=== PATIENT | female | born 1975 | race Caucasian/White ===

== ENCOUNTER 2021-11-16 02:42 | Emergency (ER) | payer SELFPAY ==
[~2021-11-16] VITALS: Ht 162.6 cm; Wt 77.1 kg
[2021-11-16] MEDS ORDERED: ACETAMINOPHEN 325 MG TAB PO PRN (03:00)
[2021-11-16 03:43] VITALS: BP 129/73
== END 2021-11-16 03:56 | disposition home or self-care (01) ==
LOC: ER 02:48
DX: S93.401A Sprain of unspecified ligament of right ankle, initial encounter (principal); M25.532 Pain in left wrist; M25.531 Pain in right wrist; W01.0XXA Fall on same level from slipping, tripping and stumbling without subsequent striking against object, initial encounter; Y93.01 Activity, walking, marching and hiking; Y92.89 Other specified places as the place of occurrence of the external cause
CPT/HCPCS: 99284

== ENCOUNTER 2022-01-02 03:38 | Inpatient (IN) | payer SELFPAY ==
[~2022-01-02] VITALS: Ht 162.6 cm; Wt 78.9 kg
[2022-01-02] MEDS ORDERED: ONDANSETRON HCL INJ 2MG/ML 2ML 2 MG/ML VIAL IV STA (03:40)
[2022-01-02] MEDS ORDERED: ACETAMINOPHEN 325 MG TAB PO ONE (03:45)
[2022-01-02] MEDS ORDERED: SODIUM CHLORIDE 0.9% 1000ML 1,000 ML IV ONE ×3 (03:45→04:15)
[2022-01-02 04:03] LABS: BASOPHILS # (AUTO) 0.1 (0.0-0.1); BASOPHILS % 0.4 % (0.0-1.0); HEMATOCRIT 40.1 % (34.2-44.1); LYMPHOCYTES # (AUTO) 1.9 (1.0-3.2); LYMPHOCYTES % 11.7 % (18.0-39.1); MEAN CORPUSCULAR HEMOGLOBIN 27.7 pg (28-32); MEAN CORPUSCULAR HGB CONC 32.4 g/dL (31-35); MEAN CORPUSCULAR VOLUME 85.5 fL (81-99); MONOCYTES % 6.5 % (4.4-11.3); NEUTROPHILS # (AUTO) 12.8 (2.1-6.9); PLATELET COUNT 554 x10e3/uL (140-360); RED BLOOD COUNT 4.69 x10e6/uL (3.6-5.1); RED CELL DISTRIBUTION WIDTH 15.4 % (11.7-14.4)
[2022-01-02 04:15] LABS: ALBUMIN 3.6 g/dL (3.5-5.0); ALBUMIN/GLOBULIN RATIO 0.6 (0.8-2.0); AMYLASE 57 U/L (25-125); ANION GAP 18.4 mmol/L (8-16); CALCIUM 9.2 mg/dL (8.4-10.2); CREATININE, SERUM 0.85 mg/dL (0.57-1.11); LIPASE 9 U/L (8-78)
[2022-01-02] MEDS ORDERED: CEFTRIAXONE 1 GM in SODIUM CHLORIDE 0.9% 50ML 50 ML IV ONE (04:15)
[2022-01-02 04:21] LABS: POTASSIUM 5.4 mmol/L (3.5-5.1)
[2022-01-02 04:24] LABS: CREATINE KINASE MB 0.7 ng/mL (0-5.0)
[2022-01-02 04:37] LABS: THYROID STIMULATING HORMONE 1.545 uIU/mL (0.350-4.940)
[2022-01-02] MEDS ORDERED: SODIUM CHLORIDE 0.9% 50ML 50 ML ONE (04:44)
[2022-01-02] MEDS ORDERED: IOPAMIDOL 370 MG/ML 100 ML INFUS..BTL INJ ONE (04:44)
[2022-01-02 05:03] LABS: ALBUMIN/GLOBULIN RATIO 0.7 (0.8-2.0); ANION GAP 11.2 mmol/L (8-16); CALCIUM 8.2 mg/dL (8.4-10.2); CREATININE, SERUM 0.74 mg/dL (0.57-1.11)
[2022-01-02 05:06] LABS: POTASSIUM 4.2 mmol/L (3.5-5.1)
[2022-01-02 05:41] LABS: CLARITY,URINE SL CLOUDY (CLEAR); COLOR,URINE YELLOW (YELLOW)
[2022-01-02 05:42] LABS: AMPHETAMINES SCREEN,URINE POSITIVE (NEGATIVE); BENZODIAZEPINES SCREEN,URINE NEGATIVE (NEGATIVE); KETONES,URINE NEGATIVE (NEGATIVE); LEUKOCYTE ESTERASE ,URINE NEGATIVE (NEGATIVE); NITRITE,URINE NEGATIVE (NEGATIVE); PHENCYCLIDINE SCREEN,URINE NEGATIVE (NEGATIVE); PROTEIN,URINE DIPSTICK NEGATIVE (NEGATIVE)
[2022-01-02 05:44] LABS: URINE UROBILINOGEN 0.2 mg/dL (0.2 - 1)
[2022-01-02 05:59] LABS: BACTERIA,URINE FEW /HPF; EPITHELIAL CELLS,URINE MODERATE /LPF; WBC,URINE (MAN) 0-5 /HPF (0-5)
[2022-01-02] MEDS ORDERED: ONDANSETRON HCL INJ 2MG/ML 2ML 2 MG/ML VIAL IV PRN (06:45)
[2022-01-02] MEDS ORDERED: ACETAMINOPHEN 325 MG TAB PO PRN (07:30)
[2022-01-02 07:58] LABS: CHOL/HDL RATIO 3.7 (3.0-3.6)
[2022-01-02 09:37] VITALS: BP 120/88
[2022-01-02 09:38] VITALS: BP 120/88
[2022-01-02 09:42] VITALS: BP 120/88
[2022-01-02] MEDS ORDERED: SODIUM CHLORIDE 0.9% 1000ML 1,000 ML ONE (09:48)
[2022-01-02] MEDS: METRONIDAZOLE 500MG/NS 100ML 100 ML IV SCH ×2 (10:00→17:28)
[2022-01-02] MEDS: SODIUM CHLORIDE 0.9% 1000ML 1,000 ML IV SCH (10:00)
[2022-01-02] MEDS: NICOTINE 7 MG PATCH TOP SCH (10:00)
[2022-01-02] MEDS: FAMOTIDINE 20 MG/2 ML VIAL IV SCH ×2 (10:00→17:28)
[2022-01-02 11:18] VITALS: BP 110/75
[2022-01-02 15:36] VITALS: BP 107/68
[2022-01-02] MEDS ORDERED: FAMOTIDINE 20 MG TAB PO SCH (18:15)
[2022-01-02] MEDS ORDERED: DIPHENHYDRAMINE HCL INJ 50 MG/ML VIAL IV ONE (18:25)
[2022-01-02] MEDS ORDERED: FAMOTIDINE 20 MG TAB PO ONE (18:30)
[2022-01-02] MEDS: METHYLPREDNISOLONE SOD SUCC 40 MG/ML VIAL 1ML IV SCH (18:38)
[2022-01-02 20:00] VITALS: BP 114/83
[2022-01-03] VITALS: BP 106/68
[2022-01-03 00:02] VITALS: BP 114/83
[2022-01-03 06:04] LABS: BASOPHILS % 0.2 % (0.0-1.0); HEMATOCRIT 34.2 % (34.2-44.1); HEMOGLOBIN 10.9 g/dL (12.0-16.0); LYMPHOCYTES % 10.9 % (18.0-39.1); MEAN CORPUSCULAR HEMOGLOBIN 27.6 pg (28-32); MEAN CORPUSCULAR HGB CONC 31.9 g/dL (31-35); MEAN CORPUSCULAR VOLUME 86.6 fL (81-99); MONOCYTES # (AUTO) 0.3 (0.2-0.8); NEUTROPHILS # (AUTO) 8.1 (2.1-6.9); NEUTROPHILS % 85.7 % (38.7-80.0); PLATELET COUNT 432 x10e3/uL (140-360); RED BLOOD COUNT 3.95 x10e6/uL (3.6-5.1); RED CELL DISTRIBUTION WIDTH 15.6 % (11.7-14.4)
[2022-01-03 06:20] LABS: ANION GAP 9.8 mmol/L (8-16); CALCIUM 8.3 mg/dL (8.4-10.2); CREATININE, SERUM 0.62 mg/dL (0.57-1.11); POTASSIUM 3.8 mmol/L (3.5-5.1)
[2022-01-03] MEDS: SODIUM CHLORIDE 0.9% 1000ML 1,000 ML IV SCH (06:20)
[2022-01-03] MEDS: METHYLPREDNISOLONE SOD SUCC 40 MG/ML VIAL 1ML IV SCH (06:20)
[2022-01-03 07:17] VITALS: BP 90/54
[2022-01-03 07:41] VITALS: BP 90/54
[2022-01-03] MEDS: FAMOTIDINE 20 MG/2 ML VIAL IV SCH (08:36)
[2022-01-03] MEDS: NICOTINE 7 MG PATCH TOP SCH (08:37)
[2022-01-03] MEDS ORDERED: CEFTRIAXONE 1 GM in SODIUM CHLORIDE 0.9% 50ML 50 ML IV SCH (09:00)
[2022-01-03 11:17] VITALS: BP 115/81
[2022-01-03 15:56] VITALS: BP 107/68
[2022-01-03] MEDS ORDERED: CEPHALEXIN500 MG PO (17:09)
[2022-01-03] MEDS ORDERED: ONDANSETRON ODT4 MG PO (17:09)
[2022-01-03] MEDS ORDERED: METFORMIN HCL500 MG PO (17:09)
[2022-01-03] MEDS ORDERED: NICODERM CQ1 EACH TOP (17:09)
[2022-01-03] MEDS ORDERED: ONDANSETRON HCL 4 MG ORAL DISINTEGRATING TAB PO PRN (17:30)
[2022-01-03] MEDS ORDERED: FAMOTIDINE 20 MG TAB PO SCH (17:45)
== END 2022-01-03 18:29 | disposition home or self-care (01) | DRG 872 ==
LOC: ER 03:41 → ERHOLD 06:32 → OBSVTOIN 07:17 → MED/SURG3 09:15
PROVIDERS: ADMIT Internal Medicine; ATTEND Internal Medicine
DX: A41.9 Sepsis, unspecified organism (principal); K92.0 Hematemesis; E87.2 Acidosis; A08.8 Other specified intestinal infections; F15.10 Other stimulant abuse, uncomplicated; R65.20 Severe sepsis without septic shock; Z90.49 Acquired absence of other specified parts of digestive tract; Z88.8 Allergy status to other drugs, medicaments and biological substances; F17.210 Nicotine dependence, cigarettes, uncomplicated; E11.65 Type 2 diabetes mellitus with hyperglycemia; Z20.822 Contact with and (suspected) exposure to COVID-19
CPT/HCPCS: 36415; 71045; 74177; 80048; 80053; 80061; 80307; 80320; 81001; 82150; 82550; 82553; 82948; 83036; 83605; 83690; 84436; 84443; 84479; 84484; 84702; 85025; 87040; 93005; 94799; 96361; 99284; J0696; J1200; J2405; J2920; J7030; Q9967; U0002